=== PATIENT | female | born 1995 | race American Indian/Alaskan Native ===

== ENCOUNTER 2017-04-19 12:51 | Emergency (ER) | payer SELFPAY ==
[~2017-04-19] VITALS: Ht 170.2 cm; Wt 54.2 kg
[2017-04-19] MEDS ORDERED: SODIUM CHLORIDE FLUSH 10ML SYR IVF ONE (13:30)
[2017-04-19] MEDS ORDERED: DIPHENHYDRAMINE 50 MG/ML, 1ML IVPush ONE (13:30)
[2017-04-19] MEDS ORDERED: KETOROLAC 30 MG/1 ML IVPush ONE (13:30)
[2017-04-19] MEDS ORDERED: SODIUM CHLORIDE 0.9% 1,000ML IVBOLUS ONE (13:30)
[2017-04-19] MEDS ORDERED: METOCLOPRAMIDE 5 MG/ML, 2ML IVPush ONE (13:30)
[2017-04-19] MEDS ORDERED: DIPHENHYDRAMINE 50 MG/ML, 1ML ONE (13:46)
[2017-04-19] MEDS ORDERED: METOCLOPRAMIDE 5 MG/ML, 2ML ONE (13:46)
[2017-04-19] MEDS ORDERED: KETOROLAC 30 MG/1 ML ONE (13:46)
[2017-04-19 13:52] LABS: HEMOGLOBIN 14.9 g/dL (11.7-16.4); WHITE BLOOD COUNT 11.2 x10^3/uL (4.5-13.2)
[2017-04-19 14:04] LABS: BLOOD UREA NITROGEN 11 mg/dL (7-18)
[2017-04-19 16:05] VITALS: BP 100/61
== END 2017-04-19 16:09 | disposition home or self-care (01) ==
LOC: ED 13:40
DX: G43.829 Menstrual migraine, not intractable, without status migrainosus (principal); Z91.040 Latex allergy status; Z88.8 Allergy status to other drugs, medicaments and biological substances
CPT/HCPCS: 36415; 80048; 81001; 85025; 87086; 96361; 96374; 96375; 99284; J1200; J1885; J2765; J7030

== ENCOUNTER 2017-07-20 00:27 | Emergency (ER) | payer SELFPAY ==
[~2017-07-20] VITALS: Ht 170.2 cm; Wt 52.4 kg
[2017-07-20 01:23] VITALS: BP 107/62
== END 2017-07-20 01:34 | disposition home or self-care (01) ==
LOC: ED 01:03
DX: R20.2 Paresthesia of skin (principal)
CPT/HCPCS: 99282; Q0177

== ENCOUNTER 2018-02-09 17:58 | Emergency (ER) | payer MEDICAID ==
[~2018-02-09] VITALS: Ht 170.2 cm; Wt 52.2 kg
[2018-02-09 18:00] VITALS: BP 107/65
[2018-02-09] MEDS ORDERED: ONDANSETRON ODT 4 MG ONE (18:20)
[2018-02-09] MEDS ORDERED: ONDANSETRON ODT 4 MG PO ONE (18:30)
[2018-02-09 18:32] LABS: BASOPHILS # (AUTO) 0.04 x10^3/uL (0-0.3); BASOPHILS % (AUTO) 1 % (0-1); EOSINOPHILS # (AUTO) 0.07 x10^3/uL (0-0.8); EOSINOPHILS % (AUTO) 1 % (1-7); LYMPHOCYTES # (AUTO) 2.31 x10^3/uL (1-6.1); LYMPHOCYTES % (AUTO) 44 % (22-44); MD NO; MEAN CORPUSCULAR HEMOGLOBIN 29.6 pg (27.0-34.8); MEAN CORPUSCULAR HGB CONC 34.2 g/dL (32.4-35.8); MEAN CORPUSCULAR VOLUME 86.7 fL (80-100); MEAN PLATELET VOLUME 7.9 fL (7.4-10.4); MONOCYTES % (AUTO) 6 % (2-9); NEUTROPHILS # (AUTO) 2.48 x10^3/uL (1.8-8.0); NEUTROPHILS % (AUTO) 48 % (42-75); PLATELET COUNT 278 x10^3/uL (130-400); RED BLOOD COUNT 4.75 x10^6/uL (3.82-5.3); RED CELL DISTRIBUTION WIDTH 13.2 % (9.6-15.2)
[2018-02-09 18:43] LABS: ALANINE AMINOTRANSFERASE 40 U/L (12-78); ALBUMIN 3.6 g/dL (3.4-5.0); ANION GAP 6 mmol/L (5-15); CALCIUM 8.7 mg/dL (8.5-10.1); CHLORIDE 106 mmol/L (98-107); CREATININE 0.81 mg/dL (0.55-1.02)
[2018-02-09 18:48] LABS: ALKALINE PHOSPHATASE 82 U/L (45-117); BILIRUBIN,TOTAL 0.6 mg/dL (0.2-1.0); TOTAL PROTEIN 7.1 g/dL (6.4-8.2)
[2018-02-09 19:30] LABS: CULTURE INDICATED? YES; MICROSCOPIC INDICATED
== END 2018-02-09 20:28 | disposition home or self-care (01) ==
LOC: ED 19:30
DX: N30.00 Acute cystitis without hematuria (principal); F11.10 Opioid abuse, uncomplicated
CPT/HCPCS: 36415; 80053; 81001; 83690; 84703; 85025; 87086; 99284; Q0162

== ENCOUNTER 2018-07-13 11:33 | Emergency (ER) | payer MEDICAID ==
[~2018-07-13] VITALS: Ht 172.7 cm; Wt 52.6 kg
[2018-07-13 11:57] VITALS: BP 117/77
== END 2018-07-13 13:01 | disposition home or self-care (01) ==
LOC: ED 12:55
DX: B86 Scabies (principal); D50.0 Iron deficiency anemia secondary to blood loss (chronic); Z76.0 Encounter for issue of repeat prescription; F32.9 Major depressive disorder, single episode, unspecified; F17.200 Nicotine dependence, unspecified, uncomplicated
CPT/HCPCS: 99283

== ENCOUNTER 2019-12-23 19:32 | Emergency (ER) | payer MEDICAID ==
[~2019-12-23] VITALS: Ht 170.2 cm; Wt 57.4 kg
[2019-12-23 19:34] VITALS: BP 125/83
[2019-12-23] MEDS ORDERED: LITH600C PO (19:38)
[2019-12-23] MEDS ORDERED: IRON (19:38)
[2019-12-23] MEDS ORDERED: REMERON (19:38)
[2019-12-23] MEDS ORDERED: LIDOCAINE-MPF 1%, 5ML ONE (19:55)
--- NOTE | 2019-12-23 19:57 | NUR ---
DENICE PULLED FOR PROVIDER ADMIN. PT SITTING ON GURNEY. NICOLE
[2019-12-23] MEDS ORDERED: LIDOCAINE-MPF 1%, 5ML INFIL ONE (20:00)
--- NOTE | 2019-12-23 20:04 | NUR ---
PROVIDER AT BEDSIDE TO I&D.
--- NOTE | 2019-12-23 20:19 | NUR ---
IRRIGATED R HAND. PT TOLERATED PROCEDURE WELL
== END 2019-12-23 20:45 | disposition home or self-care (01) ==
LOC: ED 20:36
DX: L02.413 Cutaneous abscess of right upper limb (principal); F11.129 Opioid abuse with intoxication, unspecified
CPT/HCPCS: 99283